=== PATIENT | female | born 1970 | race African-American/Black ===

== ENCOUNTER 2017-10-20 19:08 | Emergency (ER) | payer MEDICARE, MEDICAID ==
[2017-10-20] MEDS ORDERED: IV NORMAL SALINE 500ML BAG 500 ML IV (20:00)
[2017-10-20 20:43] LABS: ADD MAN DIFF? NO
[2017-10-20 20:53] LABS: BASO # 0.1 x10^3/uL (0.0-0.2); BASO % 1 % (0-3); EOS # 0.1 x10^3/uL (0.0-0.7); EOS % 1 % (0-3); HEMATOCRIT 31.8 % (36.0-47.0); HEMOGLOBIN 9.9 g/dL (12.0-15.5); LYMPH # 1.6 x10^3/uL (1.0-4.8); LYMPH % 15 % (24-48); MEAN CORPUSCULAR HEMOGLOBIN 21 pg (25-35); MEAN CORPUSCULAR HGB CONC 31 g/dL (31-37); MEAN CORPUSCULAR VOLUME 66 fL (79-100); MONO # 0.8 x10^3/uL (0.0-1.1); MONO % 8 % (0-9); NEUT # 7.7 x10^3uL (1.8-7.7); NEUT % 76 % (31-73); PLATELET COUNT 269 x10^3/uL (140-400); RED BLOOD COUNT 4.86 x10^6/uL (3.50-5.40); RED CELL DISTRIBUTION WIDTH 29.2 % (11.5-14.5); WHITE BLOOD COUNT 10.2 x10^3/uL (4.0-11.0)
[2017-10-20] MEDS: IV NORMAL SALINE 1000ML BAG 1,000 ML IV ×2 (20:59→21:52)
[2017-10-20] MEDS: ACETAMINOPHEN 500 MG TABLET PO (20:59)
[2017-10-20 21:07] LABS: ANION GAP 10 (6-14); BLOOD UREA NITROGEN 9 mg/dL (7-20); BUN/CREATININE RATIO 11 (6-20); CARBON DIOXIDE 24 mmol/L (21-32); CHLORIDE 108 mmol/L (98-107); CREATININE 0.8 mg/dL (0.6-1.0); GFR 92.6; GLUCOSE 103 mg/dL (70-99); POTASSIUM 4.3 mmol/L (3.5-5.1); SODIUM 142 mmol/L (136-145)
[2017-10-20 21:09] LABS: URINE HCG POC HCG NEGATIVE (Negative)
[2017-10-20 21:10] LABS: BILIRUBIN,URINE NEGATIVE (NEG); CLARITY,URINE CLOUDY; COLOR,URINE YELLOW; GLUCOSE,URINE NEGATIVE (NEG); NITRITE,URINE NEGATIVE (NEG); PROTEIN,URINE >=300 mg/dL (NEG-TRACE); UROBILINOGEN,URINE 0.2 mg/dL (0.2 mg/dL)
[2017-10-20 21:13] LABS: ALBUMIN 3.5 g/dL (3.4-5.0); ALBUMIN/GLOBULIN RATIO 0.9 (1.0-1.7); ALK PHOS 112 U/L (46-116); ALT (SGPT) 21 U/L (14-59); AST (SGOT) 13 U/L (15-37); LIPASE 71 U/L (73-393); TOTAL BILIRUBIN 0.2 mg/dL (0.2-1.0); TOTAL PROTEIN 7.4 g/dL (6.4-8.2)
[2017-10-20] MEDS: fentaNYL PF VIAL 100 MCG/2 ML VIAL IV (21:25)
[2017-10-20 21:26] LABS: AMORPHOUS SEDIMENT,UR PRESENT /HPF; BACTERIA,URINE 0 /HPF (0-FEW); RBC,URINE 0 /HPF (0-2); SQUAMOUS EPITHELIAL CELL,UR OCC /LPF; WBC,URINE 0 /HPF (0-4)
[2017-10-20 21:31] LABS: PLT ESTIMATE ADEQUATE (ADEQUATE); POLYCHROMASIA SLIGHT
[2017-10-20 21:32] LABS: ANISOCYTOSIS MARKED; HYPOCHROMIA MARKED; MICROCYTOSIS MARKED
[2017-10-20] MEDS: KETOROLAC 30 MG/ML INJ. IV (21:51)
[2017-10-20] MEDS: diazePAM 5 MG TABLET PO (21:51)
[2017-10-20 22:26] LABS: PROCALCITONIN < 0.10 ng/mL (0.00-0.10)
== END 2017-10-20 23:12 | disposition home or self-care (01) ==
LOC: ER 19:08
DX: M54.32 Sciatica, left side (principal); R50.9 Fever, unspecified; D64.9 Anemia, unspecified; I10 Essential (primary) hypertension; I25.2 Old myocardial infarction; F17.200 Nicotine dependence, unspecified, uncomplicated; Z88.0 Allergy status to penicillin; Z79.02 Long term (current) use of antithrombotics/antiplatelets; Z90.49 Acquired absence of other specified parts of digestive tract; Z86.718 Personal history of other venous thrombosis and embolism
CPT/HCPCS: 36415; 71046; 80053; 81001; 81025; 83605; 83690; 84145; 85025; 87040; 93971; 96374; 99285-25; J1885; J3010; J7030